=== PATIENT | female | born 1995 | race Caucasian/White ===

== ENCOUNTER 2016-12-11 20:46 | Emergency (ER) | payer OTHER, MEDICAID ==
[~2016-12-11] VITALS: Ht 160 cm; Wt 94.2 kg
[~2016-12-11 20:46] MED LIST: ACET-62 PO; AMOX500C2 PO; CLIN300C86 PO; HYDR-4246 PO; IBUP200C62 PO; MIRENA IUD; NEOM10DR7 RIGHT EAR
--- OUTSIDE RECORDS SUMMARY | 2016-12-11 20:51 | XMS REPORT | Continuity of Care Document ---
Author Author [facility] Organization [facility] Address Unknown Phone Unavailable Care Team Providers Care County Director Welfare Name Role Phone RAHEEL POPE Primary Care Physician Unavailable Insurance Providers Payer Name Policy Number Subscriber Name Relationship [facility] [id number] Radha Lambert 19 Child [facility] Community Plan [id number] Raj Lambert 17 Self Advance Directives Directive Response Recorded Date/Time Advanced Directives Type None 01/24/14 8:40pm Ordered Resuscitation Status Full Code 08/01/14 8:55pm Problems Medical Problems Problem Onset Date Status Dizziness Unknown Active UTI (urinary tract infection) Unknown Active Shakiness Unknown Active Shakiness Unknown Active Hyperemesis arising during Unknown Active Dehydration, mild Unknown Active Hyperemesis arising during Unknown Active Trichomonal vaginitis in Unknown Active UTI (lower urinary tract infection) Unknown Active Hyperemesis arising during Unknown Active UTI (urinary tract infection) Unknown Active Medications Medication Dose Route Sig Days/Qty Instructions Order Date Discontinued Date Status Ondansetron 4 Mg PO EVERY SIX HOURS PRN PRN ORDERS 20 Qty 01/28/14 Active Vit No.78/Iron/FA PO DAILY 04/27/14 Active Loratadine/Pseudoephedrine 07/29/14 Active Acetaminophen PRN PRN ORDERS 07/29/14 Active Social History Social History Problem Response Recorded Date/Time Smoking Status Unknown if ever smoked 01/27/2014 10:00pm Chewing Tobacco Status No 01/27/2014 10:00pm Hx Substance Use No 08/01/2014 9:32pm Has the pt used tobacco in the last 12 months Yes 08/01/2014 9:32pm Hospital Discharge Instructions No hospital discharge instructions. Plan of Care No plan of care. Functional Status Query Response Date Recorded Physical Hygiene Self April 27, 2014 9:10pm Physical Hygiene Self April 27, 2014 9:10pm Allergies, Adverse Reactions, Alerts Allergen Type Severity Reaction Status Last Updated No Known Allergies Active 04/27/14 Immunizations Name Given Type Hx Influenza Vaccination No Historical Hx Influenza Vaccination No Historical Vital Signs Acute Vital Signs Vital Response Date/Time Height (Feet) 5 feet Height (Inches) 3.00 inches Weight (Kilograms) 99.000 kg Height 5 ft 3 in Weight 218 lb Body Mass Index 38.0 kg/m^2 Results Test Source Date Result Interp. Ref. Range Comments Alanine Aminotransferase (ALT/SGPT) June 11, 2014 5:50pm 20 U/L N 9 -52 Albumin June 11, 2014 5:50pm 3.4 G/DL L 3.5-5.0 Albumin/Globulin Ratio June 11, 2014 5:50pm 1.3 RATIO N 1.1-2.2 Alkaline Phosphatase June 11, 2014 5:50pm 75 U/L N 38-126 Amylase Level January 27, 2014 10:35pm 50 U/L N 30-110 Anion Gap June 11, 2014 5:50pm 9 MEQ/L N 5-15 Aspartate Amino Transf (AST/SGOT) June 11, 2014 5:50pm 12 U/L L 14- 36 BUN/Creatinine Ratio June 11, 2014 5:50pm 14 RATIO N 6-26 Basophils # (Auto) June 11, 2014 5:50pm 0.0 T/MM3 N 0-0.2 Basophils (%) (Auto) June 11, 2014 5:50pm 0.2 % N 0-2 Blood Urea Nitrogen June 11, 2014 5:50pm 7.0 MG/DL N 7-17 Calcium Level June 11, 2014 5:50pm 9.3 MG/DL N 8.4-10.2 Calculated Osmolality June 11, 2014 5:50pm 262 MOSM/KG N 261-280 Carbon Dioxide Level June 11, 2014 5:50pm 23 MEQ/L N 22-30 Chloride Level June 11, 2014 5:50pm 105 MEQ/L N 98-107 Conjugated Bilirubin January 24, 2014 9:20pm 0.00 MG/DL N 0.00-0.30 Creatinine June 11, 2014 5:50pm 0.5 MG/DL L 0.7-1.2 Eosinophils # (Auto) June 11, 2014 5:50pm 0.1 T/MM3 N 0-0.5 Eosinophils (%) (Auto) June 11, 2014 5:50pm 1.0 % N 0-4 Globulin June 11, 2014 5:50pm 2.7 G/DL N 2.4-3.6 Glucose Level June 11, 2014 5:50pm 92 MG/DL N 65-110 Hematocrit June 11, 2014 5:50pm 31.1 % L 36-46 Hemoglobin June 11, 2014 5:50pm 10.7 GM/DL L 12-16 Influenza Type A Antigen July 30, 2014 4:20pm Negative - Negative for Flu A protein antigen. Assay sensitivity is90%. Influenza Type B Antigen July 30, 2014 4:20pm Negative - Negative for Flu B protein antigen. Assay sensitivity is90%. Lipase January 27, 2014 10:35pm 19 U/L L 23-300 Lymphocytes # (Auto) June 11, 2014 5:50pm 2.3 T/MM3 N 1-4.8 Lymphocytes (%) (Auto) June 11, 2014 5:50pm 23.9 % N 23-45 Mean Corpuscular Hemoglobin June 11, 2014 5:50pm 29.5 UUG N 26-34 Mean Corpuscular Hemoglobin Concent June 11, 2014 5:50pm 34.4 GM/DL N 31-37 Mean Corpuscular Volume June 11, 2014 5:50pm 85.7 UM3 N 80-100 Mean Platelet Volume June 11, 2014 5:50pm 11.0 UM3 N 9.4-12.4 Monocytes # (Auto) June 11, 2014 5:50pm 0.7 T/MM3 N 0-0.8 Monocytes (%) (Auto) June 11, 2014 5:50pm 7.5 % N 0-9.0 Neutrophils # (Auto) June 11, 2014 5:50pm 6.5 T/MM3 N 1.8-7.7 Neutrophils (%) (Auto) June 11, 2014 5:50pm 67.3 % H 33-66 Platelet Count June 11, 2014 5:50pm 185 T/MM3 N 130-400 Potassium Level June 11, 2014 5:50pm 3.9 MEQ/L N 3.6-5 RDW Standard Deviation June 11, 2014 5:50pm 37.1 FL N 36.9-50.2 Red Blood Count June 11, 2014 5:50pm 3.63 M/MM3 L 4.00-5.20 Sodium Level June 11, 2014 5:50pm 137 MEQ/L N 134-144 Total Bilirubin June 11, 2014 5:50pm 0.30 MG/DL N 0.20-1.30 Total Protein June 11, 2014 5:50pm 6.1 G/DL L 6.3-8.2 Unconjugated Bilirubin January 24, 2014 9:20pm 0.10 MG/DL N 0.00-1.10 Urine Bacteria June 11, 2014 5:50pm 2+ H - Has specimen been collected/obtained? Y Urine Bilirubin July 09, 2014 8:31pm Negative - Has specimen been collected/obtained? Y Urine Blood July 09, 2014 8:31pm Negative - Has specimen been collected/obtained? Y Urine Collection Type July 09, 2014 8:31pm Cleancatch-midstream - Has specimen been collected/obtained? Y Urine Color July 09, 2014 8:31pm Yellow - Has specimen been collected/obtained? Y Urine Culture Indicated April 27, 2014 8:30pm Cult reflexed &setup - Has specimen been collected/obtained? Y Urine Glucose (UA) July 09, 2014 8:31pm Negative - Has specimen been collected/obtained? Y Urine Ketones July 09, 2014 8:31pm Negative - Has specimen been collected/obtained? Y Urine Leukocyte Esterase July 09, 2014 8:31pm Negative - Has specimen been collected/obtained? Y Urine Mucus June 11, 2014 5:50pm Present - Has specimen been collected/obtained? Y Urine Nitrite July 09, 2014 8:31pm Negative - Has specimen been collected/obtained? Y Urine Protein July 09, 2014 8:31pm Negative - Has specimen been collected/obtained? Y Urine RBC June 11, 2014 5:50pm 1-3 /HPF - Has specimen been collected/obtained? Y Urine Specific [place] July 09, 2014 8:31pm >=1.030 H - Has specimen been collected/obtained? Y Urine Squamous Epithelial Cells June 11, 2014 5:50pm 5-10 - Has specimen been collected/obtained? Y Urine Transitional Epithelial Cells January 24, 2014 8:40pm 3-5 /HPF - Has specimen been collected/obtained? Y Urine Trichomonas June 11, 2014 5:50pm Present - Has specimen been collected/obtained? Y Urine Turbidity July 09, 2014 8:31pm Clear - Has specimen been collected/obtained? Y Urine Urobilinogen July 09, 2014 8:31pm 0.2 EU/DL - Has specimen been collected/obtained? Y Urine WBC June 11, 2014 5:50pm 3-5 /HPF - Has specimen been collected/obtained? Y Urine WBC Clumps January 24, 2014 8:40pm Moderate H - Has specimen been collected/obtained? Y Urine pH July 09, 2014 8:31pm 6.0 - Has specimen been collected/ obtained? Y White Blood Count June 11, 2014 5:50pm 9.7 T/MM3 N 4.5-11.0 Chemistry Specimen Hemolysis June 11, 2014 5:50pm < 15 0-25 0-25 : No Hemolysis.26-70: Slight Hemolysis - can falsely elevate K and Urine Protein. 71-285: Moderate Hemolysis - can falsely elevate K, Troponin I, CA 19-9, PTH, CSF GLucose, and Urine Protein, and can falsely decrease Phenytoin. 286-999: Gross Hemolysis - can falsely elevate K, Troponin I, CA 19-9, PTH, CSF Glucose, and Urine Protine, and can falsely decrease Phenytoin. Recommend specimen recollection. Urinalysis Comment July 09, 2014 8:31pm Microscopic not ind. - Has specimen been collected/obtained? Y Lab Scanned Report July 30, 2014 7:23pm LAB TEST FORM REQUEST [id number] - Turbidity June 11, 2014 5:50pm < 20 0-20 Glomerular Filtration Rate Calc June 11, 2014 5:50pm 157 - Immature Granulocyte # (Auto) June 11, 2014 5:50pm 0.01 T/MM3 N 0.00-0.03 Immature Granulocyte % (Auto) June 11, 2014 5:50pm 0.1 % N 0.0-0.5 Icterus Index June 11, 2014 5:50pm < 2 0-7 Membranes Rupture (PAMG-1) July 29, 2014 7:00am Negative - Urine Culture Urine, Voided-Not Cc-Midstream April 27, 2014 9:20pm Gram Positive Organism Procedures Procedure Status Date Provider(s) ROUTINE VENIPUNCTURE completed 07/29/14 EVAL AMNIOTIC FLUID PROTEIN completed 07/29/14 OFFICE/OUTPATIENT VISIT EST completed 07/29/14 Encounters Encounter Location Date/Time Departed Clinic [facility] 08/01/14 8:39pm Registered [facility] 07/30/14 4:18pm Departed [facility] 07/29/14 6:33am Departed [facility] 07/09/14 8:25pm Departed [facility] 06/11/14 5:03pm Departed [facility] 05/26/14 5:29pm
--- OUTSIDE RECORDS SUMMARY | 2016-12-11 20:52 | XMS REPORT ---
Author Author Fausto Borjas Organization [employer] Address Unknown Phone Unavailable Care Team Providers Care Qual Research Manager Name Role Phone Fausto Borjas CP Unavailable Allergies No Known Allergies Problems Problem Type Condition Code Onset Dates Condition Status Assessment Dental caries, unspecified K02.9 Active Medications Medication Code System Code Instructions Start Date End Date Status Dosage Acetaminophen [facility] [address]-39 not defined ibuprofen NDC 0 not defined Tramadol HCl [facility] [address]-54 50 MG Orally every 6 hrs Jul 11, 2016 Jul 19, 2016 1 tablet as needed Clindamycin HCl [facility] [address]-46 not defined Procedures Procedure Coding System Code Date EXTRAC ERUPTED TOOTH/EXPOSED ROOT CPT-4 D7140 Jul 13, 2016 Vital Signs Date/Time: Jul 13, 2016 Blood Pressure Diastolic 68 mm Hg Blood Pressure Systolic 107 mm Hg Cardiac Monitoring Heart Rate 89 /min Results No Known Results Summary Purpose [employer] Submission
--- OUTSIDE RECORDS SUMMARY | 2016-12-11 20:52 | XMS REPORT | Continuity of Care Document ---
Author Author [facility] Organization [facility] Address Unknown Phone Unavailable Care Team Providers Care [place] Reporter Name Role Phone RAHEEL POPE Primary Care Physician Unavailable Insurance Providers Payer Name Policy Number Subscriber Name Relationship [facility] [id number] Radha Lambert 19 Child [facility] Community Plan [id number] Raj Lambert 17 Self Advance Directives Directive Response Recorded Date/Time Advanced Directives Type None 01/24/14 8:40pm Ordered Resuscitation Status Full Code 08/02/14 12:08pm Resuscitation Documents on File No 08/02/14 3:32pm Chief Complaint and Reason for Visit Chief Complaint Reason for Visit Term , repeat Problems Medical Problems Problem Onset Date Status Dizziness Unknown Active UTI (urinary tract infection) Unknown Active Shakiness Unknown Active Shakiness Unknown Active Hyperemesis arising during Unknown Active Dehydration, mild Unknown Active Hyperemesis arising during Unknown Active Trichomonal vaginitis in Unknown Active UTI (lower urinary tract infection) Unknown Active Hyperemesis arising during Unknown Active UTI (urinary tract infection) Unknown Active Term , repeat 08/05/2014 Active Medications Medication Dose Route Sig Days/Qty Instructions Order Date Discontinued Date Status Ondansetron 4 Mg PO EVERY SIX HOURS PRN PRN ORDERS 20 Qty 01/28/14 Discontinued Vit No.78/Iron/FA PO DAILY 04/27/14 Active Loratadine/Pseudoephedrine 07/29/14 Active Acetaminophen PRN PRN ORDERS 07/29/14 08/05/14 Discontinued Hydrocodone/Acetaminophen 1-2 Tab PO Q4H PRN PAIN 20 Qty 08/05/14 Active Ibuprofen 800 Mg PO Q8H @ 0000/0800/1600 30 Qty 08/05/14 Active Social History Social History Problem Response Recorded Date/Time Smoking Status Unknown if ever smoked 01/27/2014 10:00pm Chewing Tobacco Status No 01/27/2014 10:00pm Hx Substance Use No 08/02/2014 3:32pm Has the pt used tobacco in the last 12 months Yes 08/02/2014 3:32pm Hospital Discharge Instructions Instructions: Care Instructions: Reason for Hospitalization: I was in the hospital because (patient own words): To have my baby Discharge Diet: REG Follow Up Appointments: Offices closed over lunch hour, Call [facility] during business hours to schedule appointment for [address] Moses. Condition at time of discharge: Good Do not take aspirin until cleared by Dr. Leger. Avoid ibuprofen, naproxen, Aleve, Celebrex, and related products, since this can make bleeding worse. Take prednisone as directed for your lungs, and COPD exacerbation. Use your inhaler as directed. Notify Physician If: Call your doctor, if you develop fever, have increased abdominal pain, more bloody or black-colored stools, nausea, or vomiting, weakness, or dizziness, chest pain, shortness of breath, increased, weakness, or dizziness, or any new concerns. Do not hesitate to return to the emergency department if your symptoms become severe. Condition at time of discharge: Good n/a Condition at time of discharge: Good Plan of Care Discharge Date 08/05/14 1:30pm Disposition 01 DISCHARGED HOME, SELF-CARE Instructions/Education Provided [facility] Vaginal Delivery Prescriptions See Medications Section Functional Status Query Response Date Recorded Physical Hygiene Self August 05, 2014 12:24pm Disabilities None August 05, 2014 12:24pm Devices Used Glasses August 05, 2014 12:24pm Dressing Self August 05, 2014 12:24pm Ambulation Self August 05, 2014 12:24pm Diet Self August 05, 2014 12:24pm Mental Status Alert August 05, 2014 12:24pm Disabilities None August 05, 2014 12:24pm Devices Used Glasses August 05, 2014 12:24pm Physical Hygiene Self August 05, 2014 12:24pm Dressing Self August 05, 2014 12:24pm Ambulation Self August 05, 2014 12:24pm Diet Self August 05, 2014 12:24pm Allergies, Adverse Reactions, Alerts Allergen Type Severity Reaction Status Last Updated No Known Allergies Active 04/27/14 Immunizations Name Given Type Hx Influenza Vaccination Y 07-20-2014 Historical Hx Pneumococcal Vaccination No Historical Hx Tetanus, Diptheria, Pertussis Y 07-07-2014 Historical Hx Influenza Vaccination Y 07-20-2014 Historical Hx Tetanus Diptheria No Historical Hx Tetanus, Diptheria, Pertussis Y 07-07-2014 Historical Vital Signs Acute Vital Signs Vital Response Date/Time Temperature (Fahrenheit) 97.2 deg F (96.8 - 99.1) Temperature (Calculated Celsius) 36.01054 degrees C (36.0 - 37.3) Temperature Source Oral Pulse Rate (adult) 80 bpm (60 - 100) Respiratory Rate 16 breaths/min (10 - 20) O2 Sat by Pulse Oximetry 99 % (90 - 100) Oxygen Delivery Method Room Air Blood Pressure 100/59 mm Hg Blood Pressure Source Automatic Cuff Height 5 ft 2 in Weight 218 lb Body Mass Index 39.0 kg/m^2 Results Test Source Date Result Interp. [...] 2014 5:50pm 92 MG/DL N 65-110 Hematocrit August 02, 2014 1:36pm 33.0 % L 36-46 Hemoglobin August 02, 2014 1:36pm 11.4 GM/DL L 12-16 Influenza Type A Antigen [...] 23.9 % N 23-45 Mean Corpuscular Hemoglobin August 02, 2014 1:36pm 28.8 UUG N 26-34 Mean Corpuscular Hemoglobin Concent August 02, 2014 1:36pm 34.5 GM/DL N 31-37 Mean Corpuscular Volume August 02, 2014 1:36pm 83.3 UM3 N 80-100 Mean Platelet Volume August 02, 2014 1:36pm 11.5 UM3 N 9.4-12.4 Monocytes # (Auto) June 11, 2014 5:50pm 0.7 T/MM3 N 0-0.8 Monocytes (%) (Auto) June 11, 2014 5:50pm 7.5 % N 0-9.0 Neutrophils # (Auto) June 11, 2014 5:50pm 6.5 T/MM3 N 1.8-7.7 Neutrophils (%) (Auto) June 11, 2014 5:50pm 67.3 % H 33-66 Platelet Count August 02, 2014 1:36pm 174 T/MM3 N 130-400 Potassium Level June 11, 2014 5:50pm 3.9 MEQ/L N 3.6-5 RDW Standard Deviation August 02, 2014 1:36pm 37.4 FL N 36.9-50.2 Red Blood Count August 02, 2014 1:36pm 3.96 M/MM3 L 4.00-5.20 Sodium Level June 11, [...] Has specimen been collected/obtained? Y Urine Specific [place] July 09, 2014 8:31pm >=1.030 H - [...] been collected/ obtained? Y White Blood Count August 02, 2014 1:36pm 9.7 T/MM3 N 4.5-11.0 Chemistry Specimen Hemolysis [...] 30, 2014 7:23pm LAB TEST FORM REQUEST [id number] - Turbidity June 11, 2014 5:50pm < 20 0-20 Glomerular Filtration Rate Calc June 11, 2014 5:50pm 157 - Immature Granulocyte # (Auto) June 11, 2014 5:50pm 0.01 T/MM3 N 0.00-0.03 Immature Granulocyte % (Auto) June 11, 2014 5:50pm 0.1 % N 0.0-0.5 Icterus Index June 11, 2014 5:50pm < 2 0-7 Membranes Rupture (PAMG-1) August 02, 2014 12:22pm Positive - Bordetella pertussis DNA (PCR) ([facility] Nasopharynx swab August 02, 2014 8: 30pm Urine Culture Urine, Voided-Not Cc-Midstream April 27, 2014 9:20pm Gram Positive Organism Procedures Procedure Status Date Provider(s) ROUTINE VENIPUNCTURE completed 07/29/14 EVAL AMNIOTIC FLUID PROTEIN completed 07/29/14 OFFICE/OUTPATIENT VISIT EST completed 07/29/14 OFFICE/OUTPATIENT VISIT EST completed 08/01/14 Encounters Encounter Location Date/Time Discharged Inpatient [facility] 5:29pm Recent Diagnosis Term , repeat
--- OUTSIDE RECORDS SUMMARY | 2016-12-11 20:52 | XMS REPORT | Continuity of Care Document ---
Author Author [facility] Organization [facility] Address Unknown Phone Unavailable Care Team Providers Care Public Address Technician Name Role Phone RAHEEL POPE Primary Care Physician Unavailable Insurance Providers Payer Name Policy Number Subscriber Name Relationship [facility] [id number] Radha Lambert 19 Child [facility] Community Plan [id number] Raj Lambert 17 Self Advance Directives Directive Response Recorded Date/Time Advanced Directives Type None 01/24/14 8:40pm Ordered Resuscitation Status Full Code 07/29/14 6:53am Problems Medical Problems Problem Onset Date Status [...] No 01/27/2014 10:00pm Hx Substance Use No 07/29/2014 7:27am Has the pt used tobacco in the last 12 months Yes 07/29/2014 7:27am Hospital Discharge Instructions No hospital discharge instructions. [...] (Feet) 5 feet Height (Inches) 3.00 inches Results Test Source Date Result Interp. Ref. [...] 11, 2014 5:50pm 10.7 GM/DL L 12-16 Lipase January 27, 2014 10:35pm 19 U/L [...] Has specimen been collected/obtained? Y Urine Specific [place] July 09, 2014 8:31pm >=1.030 H - [...] specimen been collected/obtained? Y Lab Scanned Report January 15, 2014 1:59pm LAB TEST FORM REQUEST [id number] - Turbidity June 11, 2014 5:50pm < [...] 27, 2014 9:20pm Gram Positive Organism Procedures No known history of procedures. Encounters Encounter Location Date/Time [facility] 07/29/14 6:33am [facility] 07/09/14 8:25pm [facility] 06/11/14 5:03pm [facility] 05/26/14 5:29pm
--- OUTSIDE RECORDS SUMMARY | 2016-12-11 20:53 | XMS REPORT | Continuity of Care Document ---
Author Author [facility] Organization [facility] Address Unknown Phone Unavailable Allergies Medications Problems Procedures Results Test Result Range TEST, SERUM - 05/06/12 07:15 TEST, SERUM NEGATIVE NEGATIVE Encounters ACCT No. Visit Date/Time Discharge Status Pt. Type Provider Facility Loc./Unit Complaint [id number] 05/06/2012 06:18:00 2011 15:10:00 DIS Outpatient Veronique CROWDER, Darci Alarcon [facility] DENISE
--- OUTSIDE RECORDS SUMMARY | 2016-12-11 20:53 | XMS REPORT | Continuity of Care Document ---
Author Author [facility] Organization [facility] Address Unknown Phone Unavailable Care Team Providers Care Blue Leather Sorter Name Role Phone RAHEEL POPE Primary Care Physician Unavailable Insurance Providers Payer Name Policy Number Subscriber Name Relationship [facility] [id number] Radha Lambert 19 Child [facility] Community Plan [id number] Raj Lambert 17 Self Advance Directives Directive Response Recorded Date/Time Advanced Directives Type None 01/24/14 8:40pm Ordered Resuscitation Status Full Code 06/11/14 5:26pm Problems Medical Problems Problem Onset Date Status [...] Active Vit No.78/Iron/FA PO DAILY 04/27/14 Active Social History Social History Problem Response Recorded Date/Time Smoking Status Unknown if ever smoked 01/27/2014 10:00pm Chewing Tobacco Status No 01/27/2014 10:00pm Hospital Discharge Instructions No hospital discharge instructions. [...] Vital Signs Vital Response Date/Time Temperature (Fahrenheit) 97.0 deg F (96.8 - 99.1) Temperature (Calculated Celsius) 36.39448 degrees C (36.0 - 37.3) Pulse Rate (adult) 94 bpm (60 - 100) Respiratory Rate 18 breaths/min (10 - 20) O2 Sat by Pulse Oximetry 98 % (90 - 100) Blood Pressure 127/58 mm Hg Results Test Source Date Result Interp. Ref. [...] 11, 2014 5:50pm 23 MEQ/L N 22-30 Chemistry Specimen Hemolysis June 11, 2014 5:50pm [...] can falsely decrease Phenytoin. Recommend specimen recollection. Chloride Level June 11, 2014 5:50pm 105 MEQ/L N 98-107 Conjugated Bilirubin January 24, 2014 9:20pm 0.00 MG/DL N 0.00-0.30 Creatinine June 11, 2014 5:50pm 0.5 MG/DL L 0.7-1.2 Eosinophils # (Auto) June 11, 2014 5:50pm 0.1 T/MM3 N 0-0.5 Eosinophils (%) (Auto) June 11, 2014 5:50pm 1.0 % N 0-4 Membranes Rupture (PAMG-1) May 26, 2014 6:02pm Negative - Globulin June 11, 2014 5:50pm 2.7 G/DL N 2.4-3.6 Glomerular Filtration Rate Calc June 11, 2014 5:50pm 157 - Glucose Level June 11, 2014 5:50pm 92 MG/DL N 65-110 Hematocrit June 11, 2014 5:50pm 31.1 % L 36-46 Hemoglobin June 11, 2014 5:50pm 10.7 GM/DL L 12-16 Icterus Index June 11, 2014 5:50pm < 2 0-7 Immature Granulocyte # (Auto) June 11, 2014 5:50pm 0.01 T/MM3 N 0.00-0.03 Immature Granulocyte % (Auto) June 11, 2014 5:50pm 0.1 % N 0.0-0.5 Lab Scanned Report January 15, 2014 1:59pm LAB TEST FORM REQUEST [id number] - Lipase January 27, 2014 10:35pm 19 U/L [...] 11, 2014 5:50pm 6.1 G/DL L 6.3-8.2 Turbidity June 11, 2014 5:50pm < 20 0-20 Unconjugated Bilirubin January 24, 2014 9:20pm 0.10 MG/DL N 0.00-1.10 Urine Bacteria June 11, 2014 5:50pm 2+ H - Has specimen been collected/obtained? Y Urine Bilirubin June 11, 2014 5:50pm Negative - Has specimen been collected/obtained? Y Urine Blood June 11, 2014 5:50pm 1+ H - Has specimen been collected/obtained? Y Urine Collection Type June 11, 2014 5:50pm Cleancatch-midstream - Has specimen been collected/obtained? Y Urine Color June 11, 2014 5:50pm Yellow - Has specimen been collected/obtained? Y Urine Culture Indicated April 27, 2014 8:30pm Cult reflexed &setup - Has specimen been collected/obtained? Y Urine Glucose (UA) June 11, 2014 5:50pm Negative - Has specimen been collected/obtained? Y Urine Ketones June 11, 2014 5:50pm Trace H - Has specimen been collected/obtained? Y Urine Leukocyte Esterase June 11, 2014 5:50pm 3+ H - Has specimen been collected/obtained? Y Urine Mucus June 11, 2014 5:50pm Present - Has specimen been collected/obtained? Y Urine Nitrite June 11, 2014 5:50pm Negative - Has specimen been collected/obtained? Y Urine Protein June 11, 2014 5:50pm Negative - Has specimen been collected/obtained? Y Urine RBC June 11, 2014 5:50pm 1-3 /HPF - Has specimen been collected/obtained? Y Urine Specific [place] June 11, 2014 5:50pm 1.020 - Has specimen been collected/obtained? Y Urine Squamous Epithelial Cells June 11, 2014 5:50pm 5-10 - Has specimen been collected/obtained? Y Urine Transitional Epithelial Cells January 24, 2014 8:40pm 3-5 /HPF - Has specimen been collected/obtained? Y Urine Trichomonas June 11, 2014 5:50pm Present - Has specimen been collected/obtained? Y Urine Turbidity June 11, 2014 5:50pm Clear - Has specimen been collected/obtained? Y Urine Urobilinogen June 11, 2014 5:50pm 0.2 EU/DL - Has specimen been collected/obtained? Y Urine WBC June 11, 2014 5:50pm 3-5 /HPF - Has specimen been collected/obtained? Y Urine WBC Clumps January 24, 2014 8:40pm Moderate H - Has specimen been collected/obtained? Y Urine pH June 11, 2014 5:50pm 7.5 - Has specimen been collected/ obtained? Y White Blood Count June 11, 2014 5:50pm 9.7 T/MM3 N 4.5-11.0 Urine Culture Urine, Voided-Not Cc-Midstream April 27, 2014 9:20pm Gram Positive Organism Procedures No known history of procedures. Encounters Encounter Location Date/Time Departed [facility] 06/11/14 5:03pm Departed [facility] 05/26/14 5:29pm Departed Emergency Room [facility] 04/27/14 7:54pm
--- OUTSIDE RECORDS SUMMARY | 2016-12-11 20:53 | XMS REPORT | Continuity of Care Document ---
Author Author [facility] Organization [facility] Address Unknown Phone Unavailable Care Team Providers Care Roofer Helper Vinyl Coating Name Role Phone RAHEEL POPE Primary Care Physician Unavailable Insurance Providers Payer Name Policy Number Subscriber Name Relationship [facility] [id number] Radha Lambert 18 Child [facility] Community Plan [id number] Raj Lambert 17 Self Advance Directives Directive Response Recorded Date/Time Advanced Directives Type None 01/24/14 8:40pm Ordered Resuscitation Status Full Code 07/09/14 9:20pm Problems Medical Problems Problem Onset Date Status [...] F (96.8 - 99.1) Temperature (Calculated Celsius) 36.16671 degrees C (36.0 - 37.3) Pulse Rate [...] Has specimen been collected/obtained? Y Urine Specific [place] July 09, 2014 8:31pm >=1.030 H - [...] 15, 2014 1:59pm LAB TEST FORM REQUEST [id number] - Turbidity June 11, 2014 5:50pm < 20 0-20 Glomerular Filtration Rate Calc June 11, 2014 5:50pm 157 - Immature Granulocyte # (Auto) June 11, 2014 5:50pm 0.01 T/MM3 N 0.00-0.03 Immature Granulocyte % (Auto) June 11, 2014 5:50pm 0.1 % N 0.0-0.5 Icterus Index June 11, 2014 5:50pm < 2 0-7 Membranes Rupture (PAMG-1) May 26, 2014 6:02pm Negative - Urine Culture Urine, Voided-Not Cc-Midstream April 27, 2014 9:20pm Gram Positive Organism Procedures No known history of procedures. Encounters Encounter Location Date/Time Departed [facility] 07/09/14 8:25pm Departed [facility] 06/11/14 5:03pm Departed [facility] 05/26/14 5:29pm Departed Emergency Room [facility] 04/27/14 7:54pm
--- OUTSIDE RECORDS SUMMARY | 2016-12-11 20:54 | XMS REPORT | Referral Summary ---
Author Author [facility] Organization [facility] Address Unknown Phone Unavailable Encounter [facility] [id number] Date(s): 10/23/16 - 10/23/16 [facility] [address] [place] [address] [facility] Discharge Diagnosis: Sinusitis Discharge Diagnosis: Bronchitis Discharge Disposition: 01-Home or Self Care Attending Physician: Tracy Freire APRN Attending Physician: Provider, Immediate Care Admitting Physician: Provider, Immediate Care Vital Signs Most recent to 1 oldest [Reference Range]: Temperature Oral 37.1 degC [35.8-37.3 degC] (10/23/16 2:00 PM) Peripheral Pulse 121 bpm Rate [60-100 bpm] *HI* (10/23/16 2:00 PM) Blood Pressure 124/76 mmHg [90-140/60-90 mmHg] (10/23/16 2:00 PM) SpO2 96 % (10/23/16 2:00 PM) Problem List Condition Effective Dates Status Health Status Informant Allergies(Confirmed) Active Allergic Active rhinitis(Confirmed) Hay fever(Confirmed) Active Anxiety(Confirmed) Active Bipolar Active disorder(Confirmed) accessory tarsal Active navicular(Confirmed) History of Active depression(Confirmed ) Ear Active infections(Confirmed ) History of Head Active trauma(Confirmed) Obesity(Confirmed) Active patient Tobacco Active patient user(Confirmed) Allergies, Adverse Reactions, Alerts No Known Medication Allergies Medications Augmentin 875 mg-125 mg oral tablet 1 tabs, Oral, q12hr, X 7 days, # 14 tabs, 0 Refill(s), Pharmacy: [id number] Start Date: 10/23/16 Stop Date: 10/30/16 Status: Ordered promethazine-codeine 6.25 mg-10 mg/5 mL oral syrup 5 mL, Oral, q4hr, as needed for cough, # 90 mL, 0 Refill(s) Start Date: 10/23/16 Status: Ordered Results No data available for this section Immunizations Given and Recorded Vaccine Date Status Refusal Reason tetanus/diphth/pertuss (Tdap) adult/adol 04/22/06 Recorded human papillomavirus vaccine 09/18/12 Given human papillomavirus vaccine 10/10/11 Given human papillomavirus vaccine 07/31/11 Given Procedures Procedure Date Related Diagnosis Body Site Excision accessory tarsal navicular bone with 2012 post tibial tendon tranfer Adenoidectomy/Tonsillectomy/Sinus Surgery Social History Social History Type Response Smoking Status Former smoker; Type: Cigarettes; Tobacco use per day: Pack ; Number of years: 31 1DC; Assessment and Plan Extracted from: Title: Office Visit Note Author: Tracy Freire [employer] [employer] Date: 10/23/16 Assessment/Plan 1.Sinusitis augmentin sent to pharmacy. Push fluids, use humidifier to help thin secretions and decreasecongestion. Mucinex to thin secretions. Sudafed per package directions to help with head congestion. Diagnosis and treatment discussed. Patient advised to follow-up with PCP in 2-3 days if symptoms do not improve. If symptoms worsen at any time, patient will go to the nearest ER for further evaluation. Patient stable upon discharge, alert and orientated with no apparent distress, all questions answered, and indicated understanding of discharge instructions. Ordered: Office Visit Level 3 Est [id number] 2.Bronchitis rx for promethazine codeine given to patient. Push fluids and use humidifier. Mucinex will help to thin mucous, the more water you drink with this the better it works. Diagnosis and treatment discussed. Patient advised to follow-up with PCP in 2-3 days if symptoms do not improve. If symptoms worsen at any time, patient will go to the nearest ER for further evaluation. Patient stable upon discharge, alert and orientated with no apparent distress, all questions answered, and indicated understanding of discharge instructions. Ordered: Office Visit Level 3 Est [id number]
--- OUTSIDE RECORDS SUMMARY | 2016-12-11 20:54 | XMS REPORT | Continuity of Care Document ---
Author Author [facility] Organization [facility] Address Unknown Phone Unavailable Care Team Providers Care Hr Analyst Name Role Phone RAHEEL POPE Primary Care Physician Unavailable Insurance Providers Guarantor Raj Lambert Address [address] [place] [address] Email DENIED/NO TO PT [facility] Payer [facility] Community Plan Policy Number [id number] Subscriber's Name Raj Lambert Relationship 18 Self Effective Date 16 Expiration Date 16 [facility] Policy Number [id number] Subscriber's Name Radha Lambert Relationship 19 Child Group Number [id number] Advance Directives Directive Response Recorded Date/Time Advanced Directives Type None 01/24/14 8:40pm Chief Complaint and Reason for Visit Chief Complaint General Reason for Visit [id number] Problems Active Problems Medical Problem Onset Date Status Bronchitis Unknown Acute Dehydration, mild Unknown Acute Dental infection Unknown Acute Dizziness Unknown Acute Hyperemesis arising during Unknown Acute Hyperemesis arising during Unknown Acute Hyperemesis arising during Unknown Acute Pain, dental Unknown Acute Shakiness Unknown Acute Shakiness Unknown Acute Term , repeat 08/05/2014 Acute Trichomonal vaginitis in Unknown Acute UTI (lower urinary tract infection) Unknown Acute UTI (urinary tract infection) Unknown Acute UTI (urinary tract infection) Unknown Acute Past Problems Medical Problem Onset Date Otitis externa Unknown Tooth abscess Unknown Medications Current Home Medications Medication Dose Units Route Directions Days Qty Instructions Start Date Acetaminophen 500 Mg Tablet 1-2 Tab Oral Every 4-6 Hours as needed for Pain 06/23/16 Amoxicillin 500 Mg Capsule 1 Cap Oral Three Times A Day 06/23/16 Clindamycin Hcl 300 Mg Capsule 1 Cap Oral Four Times Daily 40 Capsule TAKE WITH A FULL GLASS OF WATER TO AVOID ESOPHAGEAL IRRITATION. 07/09/16 Hydrocodone/Acetaminophen ([place] 5-325 Tablet) 1 Each Tablet 1-2 Tab Oral Every 6 Hours as needed for Pain 15 Tablet take for pain or cough 06/07/15 Ibuprofen 200 Mg Capsule 2 Cap Oral Every 4 Hours as needed for Pain 06/23/16 Mirena Iud 06/07/15 Neomycin/Polymyxin B Sulf/Hc (Vmlxswsl-Bqlelyoqp-Ny Ear Susp) 10 Ml Drops.susp 4 Drop Right Ear Only Four Times Daily 7 Days 06/23/16 Past Home Medications Medication Directions Ordered Status Acetaminophen (Tylenol) 325 Mg Tablet, as needed for Prn Orders 07/29/14 Discontinued Ondansetron (Zofran Odt) 4 Mg/Udtablet Tab.rapdis, 4 Mg Oral Every Six Hours as needed for Prn Orders 01/28/14 Discontinued Social History Social History Problem Response Recorded Date/Time Onset Date Status Chewing Tobacco Status No 01/27/2014 10:00pm Not Applicable Not Applicable Hx Substance Use No 07/09/2016 9:55pm Not Applicable Not Applicable Hx Alcohol Use No 07/09/2016 9:55pm Not Applicable Not Applicable Has the pt used tobacco in the last 12 months Yes 08/02/2014 3:32pm Not Applicable Not Applicable Quit (MM/YYYY) 1 week ago (01/28) 01/27/2014 10:51pm Not Applicable Not Applicable Tobacco Usage none 01/27/2014 10:51pm Not Applicable Not Applicable Query Response Start Date Stop Date Smoking Status Unknown if ever smoked Hospital Discharge Instructions No hospital discharge instructions. Plan of Care Discharge Date 07/09/16 10:26pm Disposition 01 DISCHARGED HOME, SELF-CARE Condition at Discharge Improved Instructions/Education Provided DI for Dental Pain Prescriptions See Medication Section Referrals RAHEEL POPE Care Plan and Goals Physician Care Plan Problem: Tooth abscess Goal: Follow up with primary care provider Instructions: Take medications and follow care plan as discussed/written Functional Status No functional status results. Allergies, Adverse Reactions, Alerts No known allergies. Immunizations Query Response on File Recorded Date/Time Hx Influenza Vaccination Y 07-20-2014 06/07/15 4:38pm Hx Pneumococcal Vaccination No 06/07/15 4:38pm Hx Tetanus, Diptheria, Pertussis Y 07-07-2014 06/07/15 4:38pm Hx Influenza Vaccination Y 07-20-2014 06/07/15 4:38pm Hx Tetanus Diptheria No 06/07/15 4:38pm Hx Tetanus, Diptheria, Pertussis Y 07-07-2014 06/07/15 4:38pm Influenza Vaccine Hx NONE 07/09/16 9:55pm Vital Signs Acute Vital Signs Vital Response Date/Time Temperature (Fahrenheit) 97.5 deg F (96.8 - 99.1) 07/09/2016 10:26pm Temperature (Calculated Celsius) 36.79728 degrees C (36.0 - 37.3) 07/09/2016 10:26pm Pulse Rate (adult) 64 bpm (60 - 100) 07/09/2016 10:26pm Respiratory Rate 16 breaths/min (10 - 20) 07/09/2016 10:26pm O2 Sat by Pulse Oximetry 99 % (90 - 100) 07/09/2016 10:26pm Blood Pressure 117/67 mm Hg 07/09/2016 10:26pm Height (Feet) 5 feet 07/09/2016 9:22pm Height (Inches) 3.00 inches 07/09/2016 9:22pm Weight (Kilograms) 99.500 kg 07/09/2016 9:22pm Body Mass Index (BMI) 38.0 07/09/2016 9:22pm Results No known relevant diagnostic tests, laboratory data and/or discharge summary. Procedures Procedure Status Date Provider(s) EMERGENCY DEPT VISIT Completed 06/23/16 Encounters Encounter Location Arrival/Admit Date Discharge/Depart Date Attending Provider Departed Emergency Room [facility] 07/09/16 9:05pm 07/09/16 10: 26pm CRISTINE ERWIN MD Departed Emergency Room [facility] 06/23/16 4:21pm 06/23/16 5: 53pm ILIANA FLEMING DO Recent Diagnosis
--- OUTSIDE RECORDS SUMMARY | 2016-12-11 20:54 | XMS REPORT | Continuity of Care Document ---
Author Author [facility] Organization [facility] Address Unknown Phone Unavailable Support Name Relationship Address Phone JOYCELYN KAY MD Caregiver [address] [place] [address] [address] [place] [phone] JOSE LAMBERT Next Of Kin [address] [place] [address] Insurance Providers Payer Name Policy Number Subscriber Name Relationship [facility] [id number] Radha Lambert 19 Child [facility] Community Plan [id number] Raj Lambert 17 Self Advance Directives Directive Response Recorded Date/Time Advanced Directives Type None 01/24/14 8:40pm Ordered Resuscitation Status Full Code 05/26/14 5:52pm Problems Medical Problems Problem Onset Date Status [...] F (96.8 - 99.1) Temperature (Calculated Celsius) 36.89943 degrees C (36.0 - 37.3) Pulse Rate (adult) 94 bpm (60 - 100) Respiratory Rate 18 breaths/min (10 - 20) O2 Sat by Pulse Oximetry 98 % (90 - 100) Blood Pressure 127/58 mm Hg Results Test Source Date Result Interp. Ref. Range Comments Alanine Aminotransferase (ALT/SGPT) January 27, 2014 10:35pm 27 U/L N 9-52 Albumin January 27, 2014 10:35pm 3.8 G/DL N 3.5-5.0 Albumin/Globulin Ratio January 27, 2014 10:35pm 1.4 RATIO N 1.1-2.2 Alkaline Phosphatase January 27, 2014 10:35pm 59 U/L N 38-126 Amylase Level January 27, 2014 10:35pm 50 U/L N 30-110 Anion Gap January 27, 2014 10:35pm 10 MEQ/L N 5-15 Aspartate Amino Transf (AST/SGOT) January 27, 2014 10:35pm 15 U/L N 14-36 BUN/Creatinine Ratio January 27, 2014 10:35pm 14 RATIO N 6-26 Basophils # (Auto) January 27, 2014 10:35pm 0.0 T/MM3 N 0-0.2 Basophils (%) (Auto) January 27, 2014 10:35pm 0.2 % N 0-2 Blood Urea Nitrogen January 27, 2014 10:35pm 7.0 MG/DL N 7-17 Calcium Level January 27, 2014 10:35pm 9.2 MG/DL N 8.4-10.2 Calculated Osmolality January 27, 2014 10:35pm 255 MOSM/KG L 261-280 Carbon Dioxide Level January 27, 2014 10:35pm 22 MEQ/L N 22-30 Chloride Level January 27, 2014 10:35pm 102 MEQ/L N 98-107 Conjugated Bilirubin January 24, 2014 9:20pm 0.00 MG/DL N 0.00-0.30 Creatinine January 27, 2014 10:35pm 0.5 MG/DL L 0.7-1.2 Eosinophils # (Auto) January 27, 2014 10:35pm 0.1 T/MM3 N 0-0.5 Eosinophils (%) (Auto) January 27, 2014 10:35pm 0.9 % N 0-4 Globulin January 27, 2014 10:35pm 2.7 G/DL N 2.4-3.6 Glucose Level January 27, 2014 10:35pm 76 MG/DL N 65-110 Hematocrit January 27, 2014 10:35pm 33.4 % L 36-46 Hemoglobin January 27, 2014 10:35pm 11.9 GM/DL L 12-16 Lipase January 27, 2014 10:35pm 19 U/L L 23-300 Lymphocytes # (Auto) January 27, 2014 10:35pm 2.2 T/MM3 N 1-4.8 Lymphocytes (%) (Auto) January 27, 2014 10:35pm 22.6 % L 23-45 Mean Corpuscular Hemoglobin January 27, 2014 10:35pm 29.6 UUG N 26-34 Mean Corpuscular Hemoglobin Concent January 27, 2014 10:35pm 35.6 GM/DL N 31 -37 Mean Corpuscular Volume January 27, 2014 10:35pm 83.1 UM3 N 80-100 Mean Platelet Volume January 27, 2014 10:35pm 11.3 UM3 N 9.4-12.4 Monocytes # (Auto) January 27, 2014 10:35pm 0.7 T/MM3 N 0-0.8 Monocytes (%) (Auto) January 27, 2014 10:35pm 6.7 % N 0-9.0 Neutrophils # (Auto) January 27, 2014 10:35pm 6.8 T/MM3 N 1.8-7.7 Neutrophils (%) (Auto) January 27, 2014 10:35pm 69.4 % H 33-66 Platelet Count January 27, 2014 10:35pm 186 T/MM3 N 130-400 Potassium Level January 27, 2014 10:35pm 3.8 MEQ/L N 3.6-5 RDW Standard Deviation January 27, 2014 10:35pm 36.7 FL L 36.9-50.2 Red Blood Count January 27, 2014 10:35pm 4.02 M/MM3 N 4.00-5.20 Sodium Level January 27, 2014 10:35pm 134 MEQ/L N 134-144 Total Bilirubin January 27, 2014 10:35pm 0.50 MG/DL N 0.20-1.30 Total Protein January 27, 2014 10:35pm 6.5 G/DL N 6.3-8.2 Unconjugated Bilirubin January 24, 2014 9:20pm 0.10 MG/DL N 0.00-1.10 Urine Bacteria April 27, 2014 8:30pm 3+ H - Has specimen been collected/obtained? Y Urine Bilirubin April 27, 2014 8:30pm Negative - Has specimen been collected/obtained? Y Urine Blood April 27, 2014 8:30pm Negative - Has specimen been collected/obtained? Y Urine Collection Type April 27, 2014 8:30pm Voided-not cc-midstr - Has specimen been collected/obtained? Y Urine Color April 27, 2014 8:30pm Yellow - Has specimen been collected/obtained? Y Urine Culture Indicated April 27, 2014 8:30pm Cult reflexed &setup - Has specimen been collected/obtained? Y Urine Glucose (UA) April 27, 2014 8:30pm Negative - Has specimen been collected/obtained? Y Urine Ketones April 27, 2014 8:30pm Negative - Has specimen been collected/obtained? Y Urine Leukocyte Esterase April 27, 2014 8:30pm 1+ H - Has specimen been collected/obtained? Y Urine Mucus January 24, 2014 8:40pm Present - Has specimen been collected /obtained? Y Urine Nitrite April 27, 2014 8:30pm Negative - Has specimen been collected/obtained? Y Urine Protein April 27, 2014 8:30pm Negative - Has specimen been collected/obtained? Y Urine RBC April 27, 2014 8:30pm 10-20 /HPF H - Has specimen been collected/obtained? Y Urine Specific [place] April 27, 2014 8:30pm >=1.030 H - Has specimen been collected/obtained? Y Urine Squamous Epithelial Cells April 27, 2014 8:30pm >50 - Has specimen been collected/obtained? Y Urine Transitional Epithelial Cells January 24, 2014 8:40pm 3-5 /HPF - Has specimen been collected/obtained? Y Urine Trichomonas January 27, 2014 11:50pm Present - Has specimen been collected/obtained? Y Urine Turbidity April 27, 2014 8:30pm Clear - Has specimen been collected/obtained? Y Urine Urobilinogen April 27, 2014 8:30pm 0.2 EU/DL - Has specimen been collected/obtained? Y Urine WBC April 27, 2014 8:30pm 50-200 /HPF H - Has specimen been collected/obtained? Y Urine WBC Clumps January 24, 2014 8:40pm Moderate H - Has specimen been collected/obtained? Y Urine pH April 27, 2014 8:30pm 6.0 - Has specimen been collected/ obtained? Y White Blood Count January 27, 2014 10:35pm 9.8 T/MM3 N 4.5-11.0 Chemistry Specimen Hemolysis January 27, 2014 10:35pm 17 N 0-25 0-25: No Hemolysis.26-70: Slight Hemolysis - can falsely elevate K and Urine Protein. 71-285: Moderate Hemolysis - can falsely elevate K, Troponin I, CA 19-9, PTH, CSF GLucose, and Urine Protein, and can falsely decrease Phenytoin. 286-999: Gross Hemolysis - can falsely elevate K, Troponin I, CA 19-9, PTH, CSF Glucose, and Urine Protine, and can falsely decrease Phenytoin. Recommend specimen recollection. Lab Scanned Report January 15, 2014 1:59pm LAB TEST FORM REQUEST [id number] - Turbidity January 27, 2014 10:35pm < 20 0-20 Glomerular Filtration Rate Calc January 27, 2014 10:35pm 159 - Immature Granulocyte # (Auto) January 27, 2014 10:35pm 0.02 T/MM3 N 0.00- 0.03 Immature Granulocyte % (Auto) January 27, 2014 10:35pm 0.2 % N 0.0-0.5 Icterus Index January 27, 2014 10:35pm < 2 0-7 Membranes Rupture (PAMG-1) May 26, 2014 6:02pm Negative - Urine Culture Urine, Voided-Not Cc-Midstream April 27, 2014 9:20pm Gram Positive Organism Procedures No known history of procedures. Encounters Encounter Location Date/Time Departed Clinic [facility] 05/26/14 5:29pm Departed Emergency Room [facility] 04/27/14 7:54pm
[2016-12-11 21:10] VITALS: Ht 160 cm; Wt 94.2 kg
--- NOTE | 2016-12-11 21:20 | NUR ---
LOBBY PT AMBULATES TO LOBBY AT THIS TIME TO AWAIT ROOM PLACEMENT.
[2016-12-11] MEDS ORDERED: LORA-610 PO (21:46)
--- OUTSIDE RECORDS SUMMARY | 2016-12-11 21:59 | XMS REPORT | Continuity of Care Document ---
Author Author [facility] Organization [facility] Address Unknown Phone Unavailable Care Team Providers Care Raw Sampler Name Role Phone RAHEEL POPE Primary Care Physician Unavailable Insurance Providers Payer Name Policy Number Subscriber Name Relationship [facility] [id number] Radha Lambert 18 Child [facility] Community Plan [id number] Raj Lambert 17 Self Advance Directives Directive [...] Has specimen been collected/obtained? Y Urine Specific [place] July 09, 2014 8:31pm >=1.030 H - [...] 30, 2014 7:23pm LAB TEST FORM REQUEST [id number] - Turbidity June 11, 2014 5:50pm < [...] 07/29/14 Encounters Encounter Location Date/Time Departed Clinic [facility] 08/01/14 8:39pm Registered [facility] 07/30/14 4:18pm Departed [facility] 07/29/14 6:33am Departed [facility] 07/09/14 8:25pm Departed [facility] 06/11/14 5:03pm Departed [facility] 05/26/14 5:29pm
--- NOTE | 2016-12-11 22:00 | ERPDOC ---
Departure Disposition Decision Date: Dec 11, 2016 Disposition Decision Time: 22:17 (NISREEN ALEXANDER APRN) Disposition: 01 DISCHARGED HOME, SELF-CARE Impression Impression (NISREEN ALEXANDER APRN) Impression: Primary Impression: Sprain of foot Encounter type: initial encounter Laterality: left Qualified Codes: S93.602A - Unspecified sprain of left foot, initial encounter Severity: Moderate (NISREEN ALEXANDER APRN) Condition: Stable Seen By: Mid-level only (NISREEN ALEXANDER APRN) Referrals: RAHEEL POPE (PCP) Patient Instructions: Foot Sprain (ED) Problems/Meds/Labs Reviewed?: Yes Medications reviewed and manag: Yes (NISREEN ALEXANDER APRN) Additional Instructions: I do want you to ice and elevate the left foot. Use the Naproxen as needed for pain. If you should have any other issues/concerns then follow up in clinic with your primary care provider for reevaluation. Follow up care ordered?: Yes Mental Status: Alert, Oriented (NISREEN ALEXANDER APRN) Scripts Naproxen (Naprosyn) 500 Mg Tablet 1 TAB PO BID, #20 TAB 0 Refills Prov: BENJAMINNISREEN Vásquez APRN 12/11/16 HPI General Chief Complaint: Lower Extremity Pain Stated Complaint: PAINFUL LEFT FOOT Time Seen by Provider: 21:50 Source: patient Exam Limitations: no limitations (NISREEN ALEXANDER APRN) Time Seen by Provider: 21:50 (CRISTINE ERWIN MD) HPI Foot/Ankle Initial Comments She has had surgery on the left foot at age 14. She has some extra bones on the medial aspect of the foot that protrude and she had these bones shaved down. Has not really had much trouble with her foot til now. Over the last few days she has had some pain in the top of the left foot from the anterior ankle to the MTP joints. She denies any known injury or trauma to the foot. Feels that it is bruised and swollen. Has had trouble with swelling in the left foot. Has not taken anything for the pain at all. Occurred At: home Onset: Gradual Duration: other (Over the last 2 days) Severity: moderate 1 - area of pain Method of Injury: unknown Associated Symptoms: bruising, numbness, pain with standing, swelling, DENIES: pain with extension, pain with flexion, pallor, red streaks, redness, weakness ( NOLD,NISREEN N EXCAVATING CONTRACTOR) Allergies: Coded Allergies: No Known Allergies (Unverified , 12/11/16) Past History Past Medical History Female: UTI (NOLD,NISREEN N EXCAVATING CONTRACTOR) Surgical History General: tonsils Joint: foot (NOLD,NISREEN N [employer]ATING [employer]OR) Family History Family History: Negative (NOLD,NISREEN N EXCAVATING CONTRACTOR) Vaccines Hx Influenza Vaccination: Yes (07-20-2014) Hx Pneumococcal Vaccination: No Hx Tetanus Diptheria: No Hx Tetanus, Diptheria, Pertuss: Yes (07-07-2014) (NOLD,NISREEN N [employer]ATING [employer]) Social History Smoking Status: Current every day smoker Substance Use Type: does not use Alcohol Intake: none Marital Status: Single Sexuality: male partner Current Occupational Status: unemployed (NOLD,NISREEN N [employer]OR) Review of Systems Constitutional Constitutional: DENIES: chills, fatigue, fever, weakness (NOLD,NISREEN N [employer]ATING [employer]) Musculoskeletal General: pain (in left foot), DENIES: joint pain, joint swelling, tenderness ( TTP in the anterior ankle and down onto the top of the foot), weakness (NOLD, NISREEN N [employer]ATING [employer]OR) Integumentary Skin: DENIES: color change, lesion, rash (NOLD,NISREEN N [employer]ATING [employer]) Neurological General: numbness, tingling, DENIES: weakness (NOLD,NISREEN N [employer]ATING [employer]) Exam General General Nourishment: well nourished, well developed, appears stated age, no acute distress, adult General Body Habitus: well groomed Vital Signs: RN Vital Signs have been reviewed: Yes, Temperature: 98.3, Source : Oral, Heart Rate: 87, Respiratory Rate: 16, BP: 119/69, Pulse Oximetry: 98 Height (Feet): 5 Height (Inches): 3.00 (NOLD,NISREEN N [employer]ATING [employer]OR) [employer]rak Foot/Ankle Foot/Ankle : Leg: Left Leg: NOT FOUND: atrophy, contusion, deformity, discoloration, edema, numbness, swelling, tender, weakness Ankle: NOT FOUND: achilles tendon insertion, anterior drawer sign, decreased ROM, deformity, ecchymosis, numbness, swelling, tender lat. foot, tender lat. malleolus, tender med. malleolus, tender mid foot, weakness Foot: numbness, NOT FOUND: deformity, discoloration (no ecchymosis appreciated), swelling, tender 1st MTP joint, tender plantar fascia Toes: cap refill <2 sec ea toe, NOT FOUND: decreased ROM, deformity, ecchymosis, erythema, nail avulsion, subungual hematoma Dorsalis Pedis Pulse: 2+ (NISREEN ALEXANDER APRN) Neurologic RN Documented GCS Eye Opening: Verbal: Motor: Total: (NISREEN ALEXANDER APRN) Differential Diagnoses Considering: Contusion, Dislocation, Fracture, Sprain, Strain (NISREEN ALEXANDER APRN) Progress Progress Progress Xray today is negative for fracture. Will go ahead and send her home with Rx for Naproxen. Have her ice and elevate and may wear an silvia wrap to help with the swelling. Follow up with PCP this week if not improving at all. (NISREEN ALEXANDER APRN) Xray Xray : Reason for Exam: foot pain Xray: Foot R Interpretation: Normal (NISREEN ALEXANDER APRN) NISREEN ALEXANDER APRN Dec 11, 2016 22:00 CRISTINE ERWIN MD Dec 13, 2016 14:30
--- OUTSIDE RECORDS SUMMARY | 2016-12-11 22:00 | XMS REPORT | Continuity of Care Document ---
Author Author [facility] Organization [facility] Address Unknown Phone Unavailable Care Team Providers Care Sales And Service Officer Name Role Phone RAHEEL POPE Primary Care Physician Unavailable Insurance Providers Payer Name Policy Number Subscriber Name Relationship [facility] [id number] Radha Lambert 18 Child [facility] Community Plan [id number] Raj Lambert 17 Self Advance Directives Directive [...] F (96.8 - 99.1) Temperature (Calculated Celsius) 36.26861 degrees C (36.0 - 37.3) Pulse Rate [...] 15, 2014 1:59pm LAB TEST FORM REQUEST [id number] - Lipase January 27, 2014 10:35pm 18 [...] Has specimen been collected/obtained? Y Urine Specific [place] June 11, 2014 5:50pm 1.020 - Has [...] of procedures. Encounters Encounter Location Date/Time Departed [facility] 06/11/14 5:03pm Departed [facility] 05/26/14 5:29pm Departed Emergency Room [facility] 04/27/14 7:54pm
--- OUTSIDE RECORDS SUMMARY | 2016-12-11 22:00 | XMS REPORT | Continuity of Care Document ---
Author Author [facility] Organization [facility] Address Unknown Phone Unavailable Support Name Relationship Address Phone JOYCELYN KAY MD Caregiver [address] [place] [address] [address] [place] [phone] JOSE LAMBERT Next Of Kin [address] [place] [address] Insurance Providers Payer Name Policy Number Subscriber Name Relationship [facility] [id number] Radha Lambert 18 Child [facility] Community Plan [id number] Raj Lambert 17 Self Advance Directives Directive [...] F (96.8 - 99.1) Temperature (Calculated Celsius) 36.08745 degrees C (36.0 - 37.3) Pulse Rate [...] Has specimen been collected/obtained? Y Urine Specific [place] April 27, 2014 8:30pm >=1.030 H - [...] 15, 2014 1:59pm LAB TEST FORM REQUEST [id number] - Turbidity January 27, 2014 10:35pm < [...] procedures. Encounters Encounter Location Date/Time Departed Clinic [facility] 05/26/14 5:29pm Departed Emergency Room [facility] 04/27/14 7:54pm
--- OUTSIDE RECORDS SUMMARY | 2016-12-11 22:00 | XMS REPORT | Continuity of Care Document ---
Author Author [facility] Organization [facility] Address Unknown Phone Unavailable Allergies Medications Problems Procedures Results Test Result Range TEST, SERUM - 05/06/12 07:15 TEST, SERUM NEGATIVE NEGATIVE Encounters ACCT No. Visit Date/Time Discharge Status Pt. Type Provider Facility Loc./Unit Complaint [id number] 05/06/2012 06:18:00 2011 15:10:00 DIS Outpatient Veronique CROWDER, Darci Alarcon [facility] DENISE
--- OUTSIDE RECORDS SUMMARY | 2016-12-11 22:00 | XMS REPORT | Continuity of Care Document ---
Author Author [facility] Organization [facility] Address Unknown Phone Unavailable Care Team Providers Care Avionics Supervisor Name Role Phone RAHEEL POPE Primary Care Physician Unavailable Insurance Providers Payer Name Policy Number Subscriber Name Relationship [facility] [id number] Radha Lambert 18 Child [facility] Community Plan [id number] Raj Lambert 17 Self Advance Directives Directive [...] F (96.8 - 99.1) Temperature (Calculated Celsius) 36.69800 degrees C (36.0 - 37.3) Pulse Rate [...] Has specimen been collected/obtained? Y Urine Specific [place] July 09, 2014 8:31pm >=1.030 H - [...] 15, 2014 1:59pm LAB TEST FORM REQUEST [id number] - Turbidity June 11, 2014 5:50pm < [...] of procedures. Encounters Encounter Location Date/Time Departed [facility] 07/09/14 8:25pm Departed [facility] 06/11/14 5:03pm Departed [facility] 05/26/14 5:29pm Departed Emergency Room [facility] 04/27/14 7:54pm
--- OUTSIDE RECORDS SUMMARY | 2016-12-11 22:00 | XMS REPORT | Continuity of Care Document ---
Author Author [facility] Organization [facility] Address Unknown Phone Unavailable Care Team Providers Care Hazardous Waste Remover Name Role Phone RAHEEL POPE Primary Care Physician Unavailable Insurance Providers Payer Name Policy Number Subscriber Name Relationship [facility] [id number] Radha Lambert 18 Child [facility] Community Plan [id number] Raj Lambert 17 Self Advance Directives Directive [...] Has specimen been collected/obtained? Y Urine Specific [place] July 09, 2014 8:31pm >=1.030 H - [...] 15, 2014 1:59pm LAB TEST FORM REQUEST [id number] - Turbidity June 11, 2014 5:50pm < [...] history of procedures. Encounters Encounter Location Date/Time [facility] 07/29/14 6:33am [facility] 07/09/14 8:25pm [facility] 06/11/14 5:03pm [facility] 05/26/14 5:29pm
--- OUTSIDE RECORDS SUMMARY | 2016-12-11 22:00 | XMS REPORT | Continuity of Care Document ---
Author Author [facility] Organization [facility] Address Unknown Phone Unavailable Care Team Providers Care Social Insurance Adviser Name Role Phone RAHEEL POPE Primary Care Physician Unavailable Insurance Providers Payer Name Policy Number Subscriber Name Relationship [facility] [id number] Radha Lambert 18 Child [facility] Community Plan [id number] Raj Lambert 17 Self Advance Directives Directive [...] Appointments: Offices closed over lunch hour, Call [facility] during business hours to schedule appointment [...] F (96.8 - 99.1) Temperature (Calculated Celsius) 36.51589 degrees C (36.0 - 37.3) Temperature Source [...] Has specimen been collected/obtained? Y Urine Specific [place] July 09, 2014 8:31pm >=1.030 H - [...] 30, 2014 7:23pm LAB TEST FORM REQUEST [id number] - Turbidity June 11, 2014 5:50pm < [...] 12:22pm Positive - Bordetella pertussis DNA (PCR) ([facility] Nasopharynx swab August 02, 2014 8: 30pm Urine Culture Urine, Voided-Not Cc-Midstream April 27, 2014 9:20pm Gram Positive Organism Procedures Procedure Status Date Provider(s) ROUTINE VENIPUNCTURE completed 07/29/14 EVAL AMNIOTIC FLUID PROTEIN completed 07/29/14 OFFICE/OUTPATIENT VISIT EST completed 07/29/14 OFFICE/OUTPATIENT VISIT EST completed 08/01/14 Encounters Encounter Location Date/Time Discharged [facility]patient [facility] Recent Diagnosis Term , repeat
--- NOTE | 2016-12-11 22:07 | NUR ---
RETURN FROM XRAY
[2016-12-11] MEDS ORDERED: NAPR500T PO (22:18)
[2016-12-11 22:40] VITALS: BP 108/73; PULSE 86; RESP 18; TEMP 98; O2SAT 98
--- NOTE | 2016-12-11 22:40 | NUR ---
DEPART PT IS GIVEN DISMISSAL INSTRUCTIONS WITH VERBAL UNDERSTANDING. PT IS GIVEN SCRIPT X1. PT LEAVES AMBULATORY TO ED REIGSTRATION DESK
--- NOTE | 2016-12-12 08:04 | DI ---
Indication: ITS.REASON: left foot pain PROCEDURE: FOOT LEFT 3 VIEWS: Encounter: Initial Comparison: None Findings: There is no acute fracture, dislocation or malalignment identified. Suture anchor in the navicular bone. Impression: No acute osseous abnormality. .
== END 2016-12-11 22:40 | disposition home or self-care (01) ==
LOC: ED 20:46
DX: S93.602A Unspecified sprain of left foot, initial encounter (principal); X58.XXXA Exposure to other specified factors, initial encounter; Y93.9 Activity, unspecified; Y92.009 Unspecified place in unspecified non-institutional (private) residence as the place of occurrence of the external cause; Y99.8 Other external cause status